=== PATIENT | male | born 1965 | race Caucasian/White ===

== ENCOUNTER 2018-06-18 09:21 | Outpatient (CLI) | payer OTHER ==
--- NOTE | 2018-06-18 13:20 | MRI ---
MRI OF THE RIGHT FOREFOOT WITHOUT IV CONTRAST: Date: 06/18/18 INDICATION: Right forefoot ulcer. TECHNIQUE: A surface marker was placed within the region of interest in a plantar based ulcer involving the righ t great toe. Multiplanar, multisequence MR images were obtained of the right foot without IV contras t. Comparisons made with radiograph of the right foot from 04/12/18. FINDINGS: There is abnormal T2 signal involving the great toe proximal and distal phalanx. The distal phalanx i s held in hyperextension at the DIP joint, which is unchanged from the comparison radiograph. Underly ing the surface marker is some cortical irregularity involving the plantar aspect of the great toe pr oximal phalangeal head/neck region suspicious for changes of osteomyelitis. No large drainable fluid collection is evident. There is diffuse atrophy of the visualized intrinsic foot musculature. The vis ualized aspects of the flexor and extensor tendons appear within normal limits. IMPRESSION: 1. Noncontrast MR findings suspicious for osteomyelitis involving the plantar aspect of the great to e proximal phalangeal head/neck region overlying an area of plantar skin ulceration. There is also ab normal marrow signal intensity involving the great toe distal phalanx, also suspicious for either ost eitis versus osteomyelitis. 2. The right great toe distal phalanx is held in hyperextension and is stable to the comparison date d 04/12/18. POS: [facility]
== END 2018-06-18 09:22 | disposition home or self-care (01) ==
LOC: MRI 09:21
PROVIDERS: ATTEND Podiatrist Foot & Ankle Surgery
DX: L97.519 Non-pressure chronic ulcer of other part of right foot with unspecified severity (principal); R93.7 Abnormal findings on diagnostic imaging of other parts of musculoskeletal system

== ENCOUNTER 2024-02-17 20:49 | Inpatient (IN) | payer BC, OTHER ==
[2024-02-17] MEDS ORDERED: Famotidine/PF 20 mg/2ml Vial ONE (21:01)
[2024-02-17 21:53] LABS: Hematocrit 41.4 % (42.0-52.0); Hemoglobin 15.1 g/dL (14.0-18.0); Mean Corpuscular HGB CONC 36.5 g/dL (32.0-36.0); Mean Corpuscular Hemoglobin 31.4 pg (27.0-31.0); Mean Corpuscular Volume 86.1 fL (78.0-98.0); Mean Platelet Volume 9.9 fL (7.4-10.4); Platelet Count 315 10x3/uL (130-400); RBC Distribution Width 12.5 % (11.5-14.5); Red Blood Cell (RBC) Count 4.81 mill/uL (4.70-6.10)
[2024-02-17 22:08] LABS: Troponin I Less than 0.010 ng/mL (< 0.028)
[2024-02-17 22:12] LABS: ALT (SGPT) 16 U/L (8-55); AST (SGOT) 15 U/L (5-34); Albumin 3.8 g/dL (3.5-5.0); Alkaline Phosphatase 70 U/L (40-110); Anion Gap 19 mmol/L (10-20); BUN (Urea Nitrogen) 12 mg/dL (8.4-25.7); Bilirubin, Total 0.6 mg/dL (0.2-1.2); Calc. Creatinine Clearance 0 mL/min (70-130); Calcium 8.5 mg/dL (7.8-10.44); Carbon Dioxide 18 mmol/L (22-29); Chloride 97 mmol/L (98-107); Estimated GFR 66; Globulin 2.6 g/dL (2.4-3.5); Glucose 255 mg/dL (70-105); Lipase 27 U/L (8-78); Potassium 2.5 mmol/L (3.5-5.1); Protein, Total 6.4 g/dL (6.0-8.3); Sodium 131 mmol/L (136-145)
[2024-02-17 22:19] LABS: Band 3 % (5-11); Burr Cells SLIGHT = 2-5 cells HPF (0-1); Lymphocytes 25 % (21-51); Monocytes 4 % (0-10); Neutrophil 68 % (42-75); Ovalocytes SLIGHT = 2-5 cells HPF (0-1); Platelet Adequacy Comment Platelets Normal; Polychromasia SLIGHT = 2-3 cells HPF (0-2)
[2024-02-17] MEDS ORDERED: Potassium Chloride 20 MEQ TAB ONE (22:41)
[2024-02-17] MEDS ORDERED: HYDROcodone/Acetaminophen 5/325 mg Tablet PO PRN (22:59)
[2024-02-17] MEDS ORDERED: Ondansetron ODT 4 MG TAB PO PRN (22:59)
[2024-02-17] MEDS ORDERED: Acetaminophen 325 MG TAB PO PRN (22:59)
[2024-02-17] MEDS ORDERED: Ondansetron PF 4 MG/2 ML Vial IVP PRN (22:59)
[2024-02-17] MEDS ORDERED: EPINEPHrine 4 MG in Dextrose 5% in Water 250 ML IV SCH (23:00)
[2024-02-17] MEDS ORDERED: HumaLOG 300 UNITS/3 ML VIAL SC PRN ×2 (23:01)
[2024-02-17] MEDS ORDERED: Dextrose 5% in Water 1,000 ML IV PRN (23:01)
[2024-02-17] MEDS ORDERED: Dextrose 50% Abboject 50 ML SYRINGE SLOW IVP PRN (23:01)
[2024-02-17] MEDS ORDERED: Glucagon 1 MG/ML KIT IM PRN (23:01)
[2024-02-18 00:15] VITALS: BMI 28.1
[2024-02-18] MEDS: Lactated Ringer's 1,000 ML IV SCH ×2 (00:45→01:47)
[2024-02-18] MEDS: Potassium Chloride 20 MEQ in Premix 1 BAG IVPB SCH (00:46)
[2024-02-18] MEDS: NOREPINEPHRINE 8 MG/250 ML-D5W 250 ML IVPB SCH (01:46)
[2024-02-18] MEDS: HumaLOG 300 UNITS/3 ML VIAL SC PRN (01:48)
[2024-02-18 02:38] VITALS: BP 122/65
[2024-02-18 07:53] LABS: #Basophils Less than 0.03 10x3/uL (0.0-0.2); #Eosinphils Less than 0.03 10x3/uL (0.0-0.7); %Basophils 0.1 % (0.0-1.0); %Lymphocytes 4.4 % (21.0-51.0); %Monocytes 3.4 % (0.0-10.0); %Neutrophils 91.4 % (42.0-75.0); Hematocrit 38.9 % (42.0-52.0); Hemoglobin 14.2 g/dL (14.0-18.0); Mean Corpuscular HGB CONC 36.5 g/dL (32.0-36.0); Mean Corpuscular Hemoglobin 31.8 pg (27.0-31.0); Mean Corpuscular Volume 87.2 fL (78.0-98.0); Mean Platelet Volume 9.6 fL (7.4-10.4); Platelet Count 239 10x3/uL (130-400); RBC Distribution Width 12.6 % (11.5-14.5); Red Blood Cell (RBC) Count 4.46 mill/uL (4.70-6.10)
[2024-02-18 08:03] VITALS: TEMP 98.3
[2024-02-18 08:11] LABS: ALT (SGPT) 18 U/L (8-55); AST (SGOT) 17 U/L (5-34); Alkaline Phosphatase 61 U/L (40-110); Anion Gap 13 mmol/L (10-20); BUN (Urea Nitrogen) 12 mg/dL (8.4-25.7); Bilirubin, Total 0.3 mg/dL (0.2-1.2); Calc. Creatinine Clearance 121 mL/min (70-130); Calcium 8.8 mg/dL (7.8-10.44); Carbon Dioxide 19 mmol/L (22-29); Chloride 108 mmol/L (98-107); Estimated GFR 102; Globulin 2.8 g/dL (2.4-3.5); Glucose 177 mg/dL (70-105); Potassium 4.9 mmol/L (3.5-5.1); Protein, Total 6.8 g/dL (6.0-8.3); Sodium 135 mmol/L (136-145)
[2024-02-18] MEDS: Famotidine/PF 20 mg/2ml Vial SLOW IVP SCH (08:38)
[2024-02-18] MEDS: methylPREDNISolone Sod Succ 40 MG VIAL IVP SCH (08:38)
[2024-02-18] MEDS: Enoxaparin 40 MG (0.4 mL) SYRINGE SC SCH (08:38)
== END 2024-02-18 12:35 | disposition home or self-care (01) | DRG 918 ==
LOC: ERS 20:49 → CCU 23:01
PROVIDERS: ADMIT Internal Medicine; ATTEND Hospitalist
PROC: 3E033XZ Introduction of Vasopressor into Peripheral Vein, Percutaneous Approach (ICD-10-PCS; principal; 2024-02-18)
DX: T63.461A Toxic effect of venom of wasps, accidental (unintentional), initial encounter (principal); T78.2XXA Anaphylactic shock, unspecified, initial encounter; I10 Essential (primary) hypertension; E78.5 Hyperlipidemia, unspecified; E11.9 Type 2 diabetes mellitus without complications; D72.829 Elevated white blood cell count, unspecified; E87.6 Hypokalemia; F17.210 Nicotine dependence, cigarettes, uncomplicated; Z79.899 Other long term (current) drug therapy; Z79.2 Long term (current) use of antibiotics
CPT/HCPCS: 36415; 36416; 71045; 80053; 82533; 83690; 83735; 84145; 84484; 85025; 93005; 96365; 96366; 96375; J1650; J1815; J2920; J3480; J7120; S0028